=== PATIENT | male | born 1950 | race Caucasian/White ===

== ENCOUNTER 2019-08-10 12:56 | Inpatient (IN) | payer MEDICARE ==
--- OUTSIDE RECORDS SUMMARY | 2019-08-10 13:06 | XMS REPORT | Summary of Care ---
:1950 Author Organization [facility] Address [address] [place] [address] Care Team Providers Name Role Phone Tania Larkin MD Primary Care Provider Reason for Visit Reason Comments Check Up Low abd pain that started yesterday. 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 CapIndications: Benign prostatic hyperplasia with lower urinary tract symptoms, symptom details unspecified pantoprazole (PROTONIX) Take 1 Tab by 90 Tab 3 12/25/2018 Active 40 MG Oral Tab EC mouth DAILY. sertraline (ZOLOFT) 100 Take 1 Tab by 90 Tab 3 12/25/2018 Active MG Oral Tab mouth DAILY. busPIRone (BUSPAR) 5 MG Take 1 Tab by 30 Tab 0 06/06/2019 Active Oral Tab mouth THREE TIMES DAILY. apixaban (ELIQUIS) 5 MG Take 1 Tab by 60 Tab 2 07/24/2019 Active Oral TabIndications: mouth TWICE Saphenous vein clot, DAILY. left Bacillus Take by mouth. 0 Active Coagulans-Inulin (ALIGN PREBIOTIC-PROBIOTIC PO) documented as of this encounter (statuses as of 08/09/2019) Active Problems Problem Noted Date MAYNOR on CPAP 10/16/2018 Iron deficiency anemia 11/18/2014 Overview: Etiology? Probable gi origin but no sure evidence of bleeding seen on upper and lower endoscopy y Gastric polyp 09/23/2014 Tubular adenoma 09/23/2014 Overview: Colon 09/09- Repeat in interval BMI 32.0-32.9,adult 04/18/2013 Overview: This patient's BMI has been calculated and is above average, and BMI management plan is completed. General patient education discussion including: obesity-related excess mortality IBS (irritable bowel syndrome) 10/29/2008 Diverticulosis 10/29/2008 BPH (benign prostatic hypertrophy) 10/29/2008 Overview: Followed by Dr. Jaffe. Anxiety 10/29/2008 Depression 10/29/2008 Reflux 10/29/2008 History of Kidney Stones 10/29/2008 Overview: Dr Joy follows - documented as of this encounter (statuses as of 08/09/2019) Immunizations Name Administration Dates Next Due Influenza (IM) Preservative Free 09/16/2013, 11/09/2012, 10/13/2011 Influenza Vaccine 65 Yrs + 08/07/2019 Influenza Vaccine High Dose 09/14/2018, 09/11/2017, 09/07/2016, 08/26/2015, 09/23/2014 PNEUMOCOCCAL POLYSACCHARIDE VACCINE 04/01/2016 Pneumococcal Conjugate(13 Valent) 09/23/2014 TDAP Vaccine 02/03/2009 ZOSTER (ZOSTAVAX) VACCINE 04/18/2013 documented as of this encounter Social History Tobacco Use Types Packs/Day Years Used Date Former Smoker Cigarettes 1 10 Quit: 11/27/1975 Smokeless Tobacco: Never Used Comments: 1974 Alcohol Use Drinks/Week oz/Week Comments No 0 Standard drinks or equivalent 0.0 Sex Assigned at Date Recorded Not on file Job Start Date Occupation Industry Not on file Not on file Not on file Travel History Travel Start Travel End No recent travel history available. documented as of this encounter Last Filed Vital Signs Vital Sign Reading Time Taken Comments Blood Pressure 116/66 08/09/2019 10:36 AM EDT Pulse 70 08/09/2019 10:36 AM EDT Temperature 36.7 08/09/2019 10:36 AM EDT C (98 F) Respiratory Rate - - Oxygen Saturation - - Inhaled Oxygen Concentration - - Weight 101.6 kg (224 lb) 08/09/2019 10:36 AM EDT Height 182.9 cm (6') 08/09/2019 10:36 AM EDT Body Mass Index 30.38 08/09/2019 10:36 AM EDT documented in this encounter Patient Instructions Patient InstructionsKrystina Seymour FNP - 08/09/2019 10:40 AM EDTLight diet, lots of fluids Rest Tylenol as needed Call if symptoms persist or worsen documented in this encounter Progress Notes Krystina Seymour FNP - 08/09/2019 10:40 AM EDT PATIENT: Fidel Garcia : 1950 DATE OF SERVICE: 08/09/2019 CHIEF COMPLAINT: Chief Complaint Patient presents with Check Up Low abd pain that started yesterday. Subjective HISTORY OF PRESENT ILLNESS: Fidel Garcia is a 69-y.o. male. HPI Abdominal discomfort, nausea and poor appetite x 2 days - slightly better today. Using Tylenol with some relief Past Medical History: Diagnosis Date Actinic keratosis of multiple sites of head and neck Anxiety 10/29/2008 BPH (benign prostatic hypertrophy) 10/29/[address] Jaffe. Diverticulosis 10/29/2008 History of Kidney Stones 10/29/2008 IBS (irritable bowel syndrome) 10/29/2008 Reflux 10/29/2008 Family History Problem Relation Age of Onset Parkinson's Mother Cancer Father Stomach Colon Cancer Father Heart Unknown Both paternal and maternal side Current Outpatient Medications Medication Sig apixaban (ELIQUIS) 5 MG Oral Tab Take 1 Tab by mouth TWICE DAILY. Bacillus Coagulans-Inulin (ALIGN PREBIOTIC-PROBIOTIC PO) Take by mouth. busPIRone (BUSPAR) 5 MG Oral Tab Take 1 Tab by mouth THREE TIMES DAILY. pantoprazole (PROTONIX) 40 MG Oral Tab EC Take 1 Tab by mouth DAILY. sertraline (ZOLOFT) 100 MG Oral Tab Take 1 Tab by mouth DAILY. Tamsulosin HCl (FLOMAX) 0.4 MG Oral Cap Take 1 Cap by mouth DAILY. No current facility-administered medications for this visit. Allergies Allergen Reactions Antihistamines, Chlorpheniramine-Type Other Venlafaxine Hydrochloride Social History Socioeconomic History Marital status: Spouse name: Not on file Number of children: Not on file Years of education: Not on file Highest education level: Not on file Occupational History Not on file Social Needs Financial resource strain: Not on file Food insecurity: Worry: Not on file Inability: Not on file Transportation needs: Medical: Not on file Non-medical: Not on file Tobacco Use Smoking status: Former Smoker Packs/day: 1.00 Years: 10.00 Pack years: 10.00 Types: Cigarettes Last attempt to quit: 11/27/1975 Years since quittin.7 Smokeless tobacco: Never Used Tobacco comment: 1974 Substance and Sexual Activity Alcohol use: No Alcohol/week: 0.0 standard drinks Drug use: No Sexual activity: Yes Partners: Female Lifestyle Physical activity: Days per week: Not on file Minutes per session: Not on file Stress: Not on file Relationships Social connections: Talks on phone: Not on file Gets together: Not on file Attends jain service: Not on file Active member of club or organization: Not on file Attends meetings of clubs or organizations: Not on file Relationship status: Not on file Intimate partner violence: Fear of current or ex partner: Not on file Emotionally abused: Not on file Physically abused: Not on file Forced sexual activity: Not on file Other Topics Concern Not on file Social History Narrative Not on file REVIEW OF SYSTEMS: Review of Systems Constitutional: Positive for malaise/fatigue. Negative for chills and fever. Gastrointestinal: Positive for abdominal pain and nausea. Negative for blood in stool, constipation,diarrhea and vomiting. Objective PHYSICAL EXAM: VITALS: BP 116/66 | Pulse 70 | Temp 98 F (36.7 C) | Ht 6' (1.829 m) | Wt 224 lb (101.6 kg) | BMI 30.38 kg/m Body mass index is 30.38 kg/m . Physical Exam Constitutional: He is oriented to person, place, and time. Vital signs are normal. He appears well-developed and well-nourished. HENT: Head: Normocephalic and atraumatic. Eyes: Pupils are equal, round, and reactive to light. EOM are normal. Neck: Normal range of motion. Cardiovascular: Normal rate. Pulmonary/Chest: Effort normal. Abdominal: Soft. Bowel sounds are normal. He exhibits no distension and no mass. There is no hepatosplenomegaly. There is generalized tenderness. There is no rigidity, no rebound and no guarding. No hernia. Lymphadenopathy: He has no cervical adenopathy. Neurological: He is alert and oriented to person, place, and time. Skin: Skin is warm and dry. He is not diaphoretic. No pallor. Vitals reviewed. ASSESSMENT / IMPRESSION: ICD-9-CM ICD-10-CM 1. Viral gastroenteritis 008.8 A08.4 Plan Light diet, lots of fluids Rest Tylenol as needed Call if symptoms persist or worsen Author: OSWALDO Genao 08/09/2019 10:59 documented in this encounter Plan of Treatment Date Type Specialty Care Team Description 09/06/2019 Office Visit Internal Medicine Tania Larkin MD [address] [place] [address] [phone] Health Maintenance Due Date Last Done Comments AAA SCREENING/SURVEILLANCE 2013 ZOSTER IMMUNIZATION SERIES 06/13/2013 04/18/2013 (2 of 3) MEDICARE ANNUAL WELLNESS 04/01/2017 04/01/2016, 04/23/2014 VISIT COLONOSCOPY SCREENING 09/17/2019 09/17/2014, 04/25/2013 DEPRESSION SCREENING 06/06/2020 06/06/2019 FALL RISK ASSESSMENT 08/07/2020 08/07/2019, 08/07/2019 LIPID DISORDER SCREENING 10/22/2023 10/22/2018, 07/07/2017, 07/07/2017, Additional history exists PNEUMOCOCCAL 65+YRS Completed 04/01/2016, 09/23/2014 INFLUENZA VACCINE Completed 08/07/2019, 09/14/2018, 09/11/2017, Additional history exists HPV IMMUNIZATION SERIES Aged Out No longer eligible based on patient's age to complete this topic MENINGOCOCCAL VACCINE IMM Aged Out No longer eligible based on patient's age to complete this topic documented as of this encounter Goals Goal Patient Goal Associated Recent Patient-Stated? Author Type Problems Progress Depression Depression No santy Larkin (PHQ-9) MD Tania total score < 5 Note: This is an individualized treatment (depression) goal for Fidel Garcia: Displayed above is your goal for a depression screening (PHQ-9) score that would indicate good control of your depression. Keep a regular sleep schedule Lifestyle No Tania Larkin MD Note: This is an individualized lifestyle goal for Fidel Ibrahima Jose: Please maintain a regular sleep schedule. This may help with some symptoms of depression. Take all prescribed medications as directed Self-management No Tania Larkin MD Note: This is an individualized self-management goal for Fidelgermaine Garcia: Please take all prescribed medications as directed. 1. Do not skip doses. If you cannot afford your medications, talk with your doctor. 2. Use a pill reminder system such as a pill box if needed. Your pharmacist can help you with this. 3. Contact your Pharmacy 5 days before your medication runs out. If you cannot take your medications for any reasons, talk with your doctor. 4. Please bring all of your medication bottles and inhalers (or a list of all your medications/inhalers) with you to every visit. Potential barriers to meeting all of your care plan goals will continue to be addressed on an ongoing basis. documented as of this encounter Results Not on filedocumented in this encounter Visit Diagnoses Diagnosis Viral gastroenteritis - Primary Intestinal infection due to other organism, not elsewhere classified documented in this encounter Insurance Payer Benefit Plan / Subscriber ID Effective Dates Phone Address Type Group [employer] MEDIC[employer] xxxxxxxxxxxx 2016-Present [employer] ADVANTAGE MEDICARE BLUE PPO ([phone]) Guarantor Name Account Type Relation to Date of Phone Billing Address Patient Fidel Garcia Personal/Famil 1950 [address] (Home) [address] [phone] [place], [place] (Work) [id number] documented as of this encounter"
--- OUTSIDE RECORDS SUMMARY | 2019-08-10 13:06 | XMS REPORT | Summary of Care ---
:1950 Author Organization [facility] Address [address] [place] [address] Care Team Providers Name Role Phone Tania Larkin MD Primary Care Provider Reason for Visit Reason Comments Abdominal Pain pt presents in office with severe abd pain x3 days Encounter Details Date Type Department Care Team Description 08/10/2019 Office Visit [place] [facility] Tania Larkin MD Abdominal pain, Medicine [address] unspecified abdominal [address] [place] [address] location (Primary Dx) [place] [address] [phone] Allergies Active Allergy Reactions Severity Noted Date Comments Antihistamines, Chlorpheniramine-Type Other 10/29/2008 Venlafaxine Hydrochloride 10/29/2008 documented as of this encounter (statuses as of 08/10/2019) Medications Medication Sig Dispensed Refills Start Date [...] as of this encounter (statuses as of 08/10/2019) Active Problems Problem Noted Date MAYNOR on [...] as of this encounter (statuses as of 08/10/2019) Immunizations Name Administration Dates Next Due Influenza [...] Sign Reading Time Taken Comments Blood Pressure 122/72 08/10/2019 11:45 AM EDT Pulse 65 08/10/2019 11:45 AM EDT Temperature 36.2 08/10/2019 11:45 AM EDT C (97.1 F) Respiratory Rate - - Oxygen Saturation 96% 08/10/2019 11:45 AM EDT Inhaled Oxygen Concentration - - Weight 100 kg (220 lb 6.4 oz) 08/10/2019 11:45 AM EDT Height 182.9 cm (6') 08/10/2019 11:45 AM EDT Body Mass Index 29.89 08/10/2019 11:45 AM EDT documented in this encounter Progress Notes Tania Larkin MD - 08/10/2019 11:00 AM EDT NAME:Fidel Garcia 1950: 1950 ENC Date: 08/10/2019 CC: Chief Complaint Patient presents with Abdominal Pain pt presents in office with severe abd pain x3 days Fidel Garcia is a 69-y.o. male Being treated for superficial venous thrombosis - on anticoag x 2-3 weeks now Seen yesterday with 2 days of abdominal pain - thought possibly gastroenteritis Treatment suggested tylenol - Pain at lower abdomen - - comes and goes - worse with movement- No activity that would strain - No association with Bowel movements ( but has watery diarrhea -which is usual) - No appetite - + chills / sweats - Better - tylenol helps Worse ? Not sure - +Night sweats in the last few day - Current Outpatient Medications Medication Sig apixaban (ELIQUIS) [...] No current facility-administered medications for this visit. Patient Active Problem List Diagnosis Date Noted MAYNOR on CPAP 10/16/2018 Iron deficiency anemia 11/18/2014 Etiology? Probable gi origin but no sure evidence of bleeding seen on upper and lower endoscopy y Gastric polyp 09/23/2014 Tubular adenoma 09/23/2014 Colon 09/09- Repeat in interval BMI 32.0-32.9,adult 04/18/2013 This patient's BMI has been calculated and is above average, and BMI management plan is completed. General patient education discussion including: obesity-related excess mortality IBS (irritable bowel syndrome) 10/29/2008 Diverticulosis 10/29/2008 BPH (benign prostatic hypertrophy) 10/29/[address] Jaffe. Anxiety 10/29/2008 Depression 10/29/2008 Reflux 10/29/2008 History of Kidney Stones 10/29/2008 Dr Joy follows - Family History Problem Relation Age of Onset Parkinson's Mother Cancer Father Stomach Colon Cancer Father Heart Unknown Both paternal and maternal side No cardiopulmonary symptoms No upper or lower GI complaints No urinary tract symptoms. No bruising/ bleeding. No neurological complaints . No insomnia.+ . Social History Tobacco Use Smoking status: Former Smoker Packs/day: 1.00 Years: 10.00 Pack years: 10.00 Types: Cigarettes Last attempt to quit: 11/27/1975 Years since quittin.7 Smokeless tobacco: Never Used Tobacco comment: 1974 Substance Use Topics Alcohol use: No Alcohol/week: 0.0 standard drinks Drug use: No OBJECTIVE: Seems in pain BP 122/72 (BP Location: Right arm, Patient Position: Sitting) | Pulse 65 | Temp 97.1 F (36.2 C) (Tympanic) | Ht 6' (1.829 m) | Wt 220 lb 6.4 oz ( 100 kg) | SpO2 96% | BMI 29.89 kg/m . Heent neg Neck no JVD, thyromegaly or bruit Lungs Clear CV rrr No cva tenderness - Abd Crepitance / distended / Too tender to palpation to get exam Ext trace edemat Neuro: intellect intact ; motor including gait unremarkable Patient became diaphoretic and vimitted after exam - A/P ICD-9-CM ICD-10-CM 1. Abdominal pain, unspecified abdominal location 789.00 R10.9 Patient on anticoag - with progressive 3 day pain - Will send to the ER for urgent - evualuation There are no Patient Instructions on file for this visit. AUTHOR: Tania Larkin MD 12:12 08/10/2019 documented in this encounter Plan of Treatment Date Type Specialty Care Team Description 09/06/2019 Office Visit Internal Medicine Tania Larkin MD [address] [place] [address] [phone] Health Maintenance Due Date Last Done Comments [...] is an individualized lifestyle goal for Fidel Garcia: Please maintain a regular sleep schedule. This may help with some symptoms of depression. Take all prescribed medications as directed Self-management No Tania Larkin MD Note: This is an individualized self-management goal for Fidel Garcia: Please take all prescribed medications as [...] filedocumented in this encounter Visit Diagnoses Diagnosis Abdominal pain, unspecified abdominal location - Primary documented in this encounter Insurance Payer Benefit Plan / Subscriber ID Effective Dates Phone Address Type Group [employer] MEDICARE [employer] xxxxxxxxxxxx 2016-Present [employer] ADVANTAGE MEDICARE BLUE PPO ([phone]) (Home) [address] [phone] [place], [place] (Work) [phone] documented as of this encounter"
--- OUTSIDE RECORDS SUMMARY | 2019-08-10 13:06 | XMS REPORT | Summary of Care ---
:1950 Author Organization [facility] Address [address] [place] [address] Care Team Providers Name Role Phone Tania Larkin MD Primary Care Provider Reason for Visit Reason Comments Follow Up f/u DVT right leg. Lion placed on Eliquis 07-24-19. Doing better, decreased pain and swelling. Injection flu Encounter Details Date Type Department Care Team Description 08/07/2019 Office Visit [place] Internal Tania Larkin MD Need for influenza Medicine [address] vaccination (Primary [address] [place] [address] Dx) [place] [address] [phone] Allergies Active Allergy Reactions Severity Noted Date Comments Antihistamines, Chlorpheniramine-Type Other 10/29/2008 Venlafaxine Hydrochloride 10/29/2008 documented as of this encounter (statuses as of 08/07/2019) Medications Medication Sig Dispensed Refills Start Date [...] as of this encounter (statuses as of 08/07/2019) Active Problems Problem Noted Date MAYNOR on [...] as of this encounter (statuses as of 08/07/2019) Immunizations Name Administration Dates Next Due Influenza [...] Sign Reading Time Taken Comments Blood Pressure 130/70 08/07/2019 10:01 AM EDT Pulse 62 08/07/2019 10:01 AM EDT Temperature - - Respiratory Rate - - Oxygen Saturation 95% 08/07/2019 10:01 AM EDT Inhaled Oxygen Concentration - - Weight 103 kg (227 lb) 08/07/2019 10:01 AM EDT Height 182.9 cm (6') 08/07/2019 10:01 AM EDT Body Mass Index 30.79 08/07/2019 10:01 AM EDT documented in this encounter Patient Instructions Patient InstructionsTania Larkin MD - 08/07/2019 10:00 AM EDTPlan Tania Larkin MD plan - Continue anticoag for 30-60 days - Then stop and observe - If another instance of clotting then commit to long goods drier anticoag Other authorities - Could consult restaurant bartender - Dr Shin - Here in [place]- documented in this encounter Progress Notes Tania Larkin MD - 08/07/2019 10:00 AM EDT NAME:Fidel Garcia [birth year] ENC Date: 08/07/2019 CC: Chief Complaint Patient presents with Follow Up f/u DVT right leg. Lion placed on Eliquis 07-24-19. Doing better, decreased pain and swelling. Injection flu Fidel Garcia is a 69-y.o. male SVT of the right leg - In the saphenous vein up to mid thighi- Etiology of thrombosis - Was [place] [facility] [place]- Does have prostate cancer but limited to the gland and should not be a clot risk - also not on treatment for prostate cancer which could add to clot burden Recommended to stop anticoag by Dr Solorzano but given how clse to the deep system - Current Outpatient Medications Medication Sig apixaban [...] 0.0 standard drinks Drug use: No OBJECTIVE: BP 130/70 | Pulse 62 | Ht 6' (1.829 m) | Wt 227 lb (103 kg) | SpO2 95% | BMI 30.79 kg/m . Right leg is soft to palpation - A/P ICD-9-CM ICD-10-CM 1. Need for influenza vaccination V04.81 Z23 DE FLU VACCINE 65 YRS + Patient Instructions Plan Tania Larkin MD plan - Continue anticoag for 30-60 days - Then stop and observe - If another instance of clotting then commit to long goods drier anticoag Other authorities - Could consult restaurant bartender - Dr Shin - Here in [place]- AUTHOR: Tania Larkin MD 10:58 08/07/2019 documented in this encounter Plan of Treatment Health Maintenance Due Date Last Done Comments AAA SCREENING/SURVEILLANCE 2013 ZOSTER IMMUNIZATION SERIES 06/13/2013 04/18/2013 (2 of 3) MEDICARE ANNUAL WELLNESS 04/01/2017 04/01/2016, 04/23/2014 VISIT INFLUENZA VACCINE (#1) 2019 09/14/2018, 09/11/2017, 09/07/2016, Additional history exists COLONOSCOPY SCREENING 09/17/2019 09/17/2014, 04/25/2013 DEPRESSION SCREENING 06/06/2020 06/06/2019 FALL RISK ASSESSMENT 08/07/2020 08/07/2019, 08/07/2019 LIPID DISORDER SCREENING 10/22/2023 10/22/2018, 07/07/2017, 07/07/2017, Additional history exists PNEUMOCOCCAL 65+YRS Completed 04/01/2016, 09/23/2014 HPV IMMUNIZATION SERIES Aged Out No longer eligible based on patient's age to complete this topic MENINGOCOCCAL VACCINE IMM Aged Out No longer eligible based on patient's age to complete this topic documented as of this encounter Goals Goal Patient Goal Associated Recent Patient-Stated? Author Type Problems Progress Depression Depression No Trae screen (PHQ-9) MD Tania total score < 5 [...] Take all prescribed medications as directed Self-management Tania Nur MD Note: This is an individualized self-management [...] filedocumented in this encounter Visit Diagnoses Diagnosis Need for influenza vaccination - Primary Need for prophylactic vaccination and inoculation against influenza documented in this encounter Insurance Payer Benefit Plan / Subscriber ID Effective Dates Phone Address Type Group [employer] MEDICARE EX[employer]LLUS xxxxxxxxxxxx 2016-Present [employer] ADVANTAGE MEDICARE BLUE PPO ([phone]) Guarantor Name Account Type Relation to Date of Phone Billing Address Patient JoseDevonteFidel P Personal/Famil 1950 [address] ([address]) [address] [phone] [place], [place] (Work) [phone] documented as of this encounter"
--- OUTSIDE RECORDS SUMMARY | 2019-08-10 13:06 | XMS REPORT | Summary of Care ---
:1950 Author Organization [facility] Address [address] [place] [address] Care Team Providers Name Role Phone Tania Larkin MD Primary Care Provider Reason for Referral Refer to Department Only (Routine) Status Reason Specialty Diagnoses / Referred By Referred To Procedures Contact Contact Authorized Vascular Surgery Diagnoses Pain of right lower leg Krystina Seymour, MARKET RISK SPECIALIST [address] [place] [address] MRI/CAT/PET Scan (Routine) Status Reason Specialty Diagnoses / Procedures Referred By Contact Referred To Contact Closed Diagnoses Pain of right lower leg Krystina Seymour, MARKET RISK SPECIALIST Procedures VL LOWER EXTREMITY DUPLEX VEINS RIGHT [address] [place] [address] Reason for Visit Reason Comments Leg Pain 07/20/19 RLE medial erythema cordlike with pain from knee to mid foot with swelling. Self treating with motrin. [id number] po daily Encounter Details Date Type Department Care Team Description 07/24/2019 Office Visit Joycelyn Mclain Krystina Seymour, Pain of right lower leg (Primary Dx); Practice [facility] RISK SPECIALIST Saphenous vein clot, left [address] [place] [address] [place] [address] [phone] Allergies Active Allergy Reactions Severity Noted Date Comments Antihistamines, Chlorpheniramine-Type Other 10/29/2008 Venlafaxine Hydrochloride 10/29/2008 documented as of this encounter (statuses as of 07/24/2019) Medications Medication Sig Dispensed Refills Start Date [...] mouth TWICE Saphenous vein clot, DAILY. left documented as of this encounter (statuses as of 07/24/2019) Active Problems Problem Noted Date MAYNOR on [...] as of this encounter (statuses as of 07/24/2019) Immunizations Name Administration Dates Next Due Influenza (IM) Preservative Free 09/16/2013, 11/09/2012, 10/13/2011 Influenza Vaccine High Dose 09/14/2018, 09/11/2017, 09/07/2016, 08/26/2015, 09/23/2014 PNEUMOCOCCAL POLYSACCHARIDE VACCINE 04/01/2016 Pneumococcal Conjugate(13 Valent) 09/23/2014 TDAP Vaccine 02/03/2009 ZOSTER (ZOSTAVAX) VACCINE 04/18/2013 documented as of this encounter Social History Tobacco Use Types Packs/Day Years Used Date Former Smoker Cigarettes 1 10 Quit: 11/27/1975 Smokeless Tobacco: Never Used Comments: 1975 Alcohol Use Drinks/Week oz/Week Comments No 0 Standard drinks or equivalent 0.0 Sex Assigned at Date Recorded Not on file Job Start Date Occupation Industry Not on file Not on file Not on file Travel History Travel Start Travel End No recent travel history available. documented as of this encounter Last Filed Vital Signs Vital Sign Reading Time Taken Comments Blood Pressure 140/80 07/24/2019 1:22 PM EDT Pulse 72 07/24/2019 1:22 PM EDT Temperature 37.2 07/24/2019 1:22 PM C (99 EDT F) Respiratory Rate 16 07/24/2019 1:22 PM EDT Oxygen Saturation - - Inhaled Oxygen Concentration - - Weight 100.2 kg (221 lb) 07/24/2019 1:22 PM from record EDT Height 182.9 cm (6') 07/24/2019 1:22 PM from record EDT Body Mass Index 29.97 07/24/2019 1:22 PM EDT documented in this encounter Patient Instructions Patient InstructionsKrystina Seymour FNP - 07/24/2019 1:20 PM EDTStart Eliquis - 2 tabs twice a day for 7 days then 1 tab twice a day Schedule appointment with vascular and follow up with Dr Larkin Call if increased redness, pain or swelling Rest - no climbing 2 :41 PM EDT documented in this encounter Progress Notes Krystina Seymour FNP - 07/24/2019 1:20 PM EDT PATIENT: Fidel Garcia : 1950 DATE OF SERVICE: 07/24/2019 CHIEF COMPLAINT: Chief Complaint Patient presents with Leg Pain 07/20/19 RLE medial erythema cordlike with pain from knee to mid foot with swelling. Self treating with motrin. [id number] po daily Subjective HISTORY OF PRESENT ILLNESS: Fidel Garcia is a 69-y.o. male. HPI Pain right LE x 5 days - had been climbing ladders prior to onset - no known injury. Using [id number] mg in AM with some relief Past Medical History: Diagnosis [...] Take 1 Tab by mouth TWICE DAILY. busPIRone (BUSPAR) 5 MG Oral Tab Take [...] Last attempt to quit: 11/27/1975 Years since quittin.6 Smokeless tobacco: Never Used Tobacco comment: 1974 Substance and Sexual Activity Alcohol use: No Alcohol/week: 0.0 standard drinks Drug use: No Sexual activity: Yes Partners: Female Lifestyle Physical activity: Days per week: Not on file Minutes per session: Not on file Stress: Not on file Relationships Social connections: Talks on phone: Not on file Gets together: Not on file Attends [employer] service: Not on file Active member of [...] REVIEW OF SYSTEMS: Review of Systems Constitutional: Negative for chills, fever and malaise/fatigue. Respiratory: Negative for hemoptysis and shortness of breath. Cardiovascular: Positive for leg swelling. Negative for chest pain and palpitations. Musculoskeletal: Positive for myalgias. Skin: Negative for rash. Objective PHYSICAL EXAM: VITALS: BP 140/80 (BP Location: Left arm, Patient Position: Sitting) | Pulse 72 | Temp 99 F (37.2 C) (Tympanic) | Resp 16 | Ht 6' (1.829 m) Comment: from record | Wt 221 lb (100.2 kg) Comment: from record | BMI 29.97 kg/ m Body mass index is 29.97 kg/m. Physical Exam Constitutional: He is oriented to person, place, and time. Vital signs are normal. He appears well-developed and well-nourished. HENT: Head: Normocephalic. Eyes: Pupils are equal, round, and reactive to light. Neck: Normal range of motion. No JVD present. Cardiovascular: Pulses: Dorsalis pedis pulses are 1+ on the right side. Posterior tibial pulses are 1+ on the right side. Non pitting edema left leg Pulmonary/Chest: Effort normal. Musculoskeletal: Legs: Per US tech - extensive clot formation in greater saphenous vein from thigh to calf Neurological: He is alert and oriented to person, place, and time. Gait normal. Skin: Skin is warm and dry. There is erythema. Vitals reviewed. ASSESSMENT / IMPRESSION: ICD-9-CM ICD-10-CM 1. Pain of right lower leg 729.5 M79.661 VL LOWER EXTREMITY DUPLEX VEINS RIGHT COMPREHENSIVE METABOLIC PANEL PROTHROMBIN TIME CBC WITH DIFFERENTIAL CBC WITH DIFFERENTIAL PROTHROMBIN TIME COMPREHENSIVE METABOLIC PANEL REFER TO VASCULAR SURGERY 2. Saphenous vein clot, left 453.6 I82.812 apixaban (ELIQUIS) 5 MG Oral Tab Plan Discussed with Dr Larkin - prefers aggressive treatment due to increased potential for clot migration to femoral vein Labs drawn Start Eliquis - 2 tabs twice a day for 7 days then 1 tab twice a day Schedule appointment with vascular and follow up with Dr Larkin Call if increased redness, pain or swelling Rest - no climbing 40 minutes spent with patient, greater than 50% of time in [id number] counseling and discussion ofDx , treatment and follow up Author: OSWALDO Genao 07/24/2019 16:07 documented in this encounter Plan of Treatment Date Type Specialty Care Team Description 07/30/2019 Office Visit Vascular Surgery Osiris Verma MD [address] [place] [address] 08/06/2019 Office Visit Internal Medicine Tania Larkin MD [address] [place] [address] [phone] Name Type Priority Associated Diagnoses Date/Time VL LOWER EXTREMITY DUPLEX Imaging Routine Pain of right lower 07/24/2019 2 :20 PM VEINS RIGHT leg EDT COMPREHENSIVE METABOLIC Lab Routine Pain of right lower 07/24/2019 2:34 PM PANEL leg EDT PROTHROMBIN TIME Lab Routine Pain of right lower 07/24/2019 2:34 PM leg EDT CBC WITH DIFFERENTIAL Lab Routine Pain of right lower 07/24/2019 2:34 PM leg EDT Name Type Priority Associated Diagnoses Order Schedule COMPREHENSIVE METABOLIC Lab Routine Pain of right lower leg Expected: 07/24 PANEL (Approximate), Expires: 01/20/2020 PROTHROMBIN TIME Lab Routine Pain of right lower leg Expected: 07/24/2019 (Approximate), Expires: 07/24/2020 CBC WITH DIFFERENTIAL Lab Routine Pain of right lower leg Expected: 2018 (Approximate), Expires: 01/20/2020 Name Type Priority Associated Diagnoses Order Schedule REFER TO VASCULAR Referral Routine Pain of right lower leg Expected: 2018, SURGERY Expires: 07/24/2020 Health Maintenance Due Date Last Done Comments AAA SCREENING/SURVEILLANCE 2013 FALL RISK ASSESSMENT 2013 ZOSTER IMMUNIZATION SERIES 06/13/2013 04/18/2013 (2 of 3) MEDICARE ANNUAL WELLNESS 04/01/2017 04/01/2016, 04/23/2014 VISIT INFLUENZA VACCINE (#1) 2019 09/14/2018, 09/11/2017, 09/07/2016, Additional history exists COLONOSCOPY SCREENING 09/17/2019 09/17/2014, 04/25/2013 DEPRESSION SCREENING 06/06/2020 06/06/2019 LIPID DISORDER SCREENING 10/22/2023 10/22/2018, 07/07/2017, 07/07/2017, [...] filedocumented in this encounter Visit Diagnoses Diagnosis Pain of right lower leg - Primary Pain in limb Saphenous vein clot, left documented in this encounter Insurance Payer Benefit Plan / Subscriber ID Effective Dates Phone Address Type Group [employer] EXCELLUS xxxxxxxxxxxx 2016-Present [facility] ADVANTAGE MEDICARE BLUE PPO ([phone]) Guarantor Name Account Type Relation to Date of Phone Billing Address Patient Fidel Garcia Personal/Famil 1950 [address] [phone] [place], [place] (Work) [address] documented as of this encounter"
--- OUTSIDE RECORDS SUMMARY | 2019-08-10 13:06 | XMS REPORT | Summary of Care ---
:1950 Author Organization [facility] Address [address] [place] [address] Care Team Providers Name Role Phone Tania Larkin MD Primary Care Provider Reason for Referral Durable Medical Equipment (Routine) Status Reason Specialty Diagnoses / Referred By Referred To Procedures Contact Contact Pending Review Diagnoses Embolism and thrombosis of superficial vein of right lower extremity Dipesh Valdivia NP [address] [facility] [place] [address] Reason for Visit Reason Comments Other Pain in right leg Refer to Department Only (Routine) Status Reason Specialty Diagnoses / Referred By Referred To Procedures Contact Contact Closed Vascular Surgery Diagnoses Pain of right lower leg Krystina Seymour FNP [address] [place] [address] Encounter Details Date Type Department Care Team Description 07/30/2019 Office Visit [place] Verma, Chronic superficial venous thrombosis of lower extremity, right (Primary Dx); Surgery MD Osiris Pain of right lower leg; [address] [facility] Embolism and thrombosis of superficial vein [place] [address] [place] [address] Allergies Active Allergy Reactions Severity Noted Date Comments Antihistamines, Chlorpheniramine-Type Other 10/29/2008 Venlafaxine Hydrochloride 10/29/2008 documented as of this encounter (statuses as of 07/30/2019) Medications Medication Sig Dispensed Refills Start Date [...] as of this encounter (statuses as of 07/30/2019) Active Problems Problem Noted Date MAYNOR on [...] as of this encounter (statuses as of 07/30/2019) Immunizations Name Administration Dates Next Due Influenza [...] Sign Reading Time Taken Comments Blood Pressure 138/82 07/30/2019 1:07 PM EDT Pulse 64 07/30/2019 1:07 PM EDT Temperature - - Respiratory Rate - - Oxygen Saturation - - Inhaled Oxygen Concentration - - Weight 102.1 kg (225 lb) 07/30/2019 1:07 PM EDT Height 185.4 cm (6' 1") 07/30/2019 1:07 PM EDT Body Mass Index 29.69 07/30/2019 1:07 PM EDT documented in this encounter Progress Notes Dipesh Valdivia NP - 07/30/2019 1:00 PM EDT PATIENT: Fidel Garcia : 1950 DATE OF SERVICE: 07/30/2019 REFERRING PRACTITIONER: Krystina Seymour PRIMARY CARE PROVIDER: Tania Larkin CHIEF COMPLAINT: Chief Complaint Patient presents with Other Pain in right leg Subjective HISTORY OF PRESENT ILLNESS: Fidel Garcia is a 69-y.o. male who is seen for evaluation of previously diagnosed superficial venous thrombosis in the greater saphenous vein from right mid thigh to the calf into the right foot. Patient reports he has been taking Eliquis 10 mg BID since 07/24/2019. Today reports pain and swelling have improved over the last week. He is taking the Eliquis and wears the compression stockings intermittently. Reports a history of prostate cancer, which is being watched. He denies any discoloration or open wounds or ulcers on legs. He does reports some frequent bilateral lower leg swelling. He denies any trauma to the leg. The patient does not have a personal history of venous thrombosis. There is not a history of venous thrombosis in the patient's family. The patient does not have a personal history of hypercoaguable state. There is not a history of a hypercoaguable state in the patient's family. Prior treatments have included: compression stockings and anticoagulation medication. He denies any chest pain, shortness of breath, or recent fever or chills. PREVIOUS DIAGNOSTICS: 07/24/2019 IMPRESSIONS: Patient has a history of right calf and foot swelling with redness to proximal calf region. There is no previous study available for comparison. A sonogram of the right lower extremity deep and superficial venous system was performed assessing grayscale appearance, color doppler flow, pulsed doppler waveforms and compressibility. Venous duplex and compressions of the right lower extremity shows superficial venous thrombosis in the greater saphenous vein from approximately the mid thigh region extending through the calf and into the distal foot. All other veins are patent and compressible. The left common femoral and saphenal femoral vein junction appears normal with compressions and spectral analysis. A verbal preliminary report was given to the requesting provider upon completion of the exam. Past Medical History: Diagnosis Date Actinic keratosis of multiple sites of head and neck Anxiety 10/29/2008 BPH (benign prostatic hypertrophy) 10/29/[address] Jaffe. Diverticulosis 10/29/2008 History of Kidney Stones 10/29/2008 IBS (irritable bowel syndrome) 10/29/2008 Reflux 10/29/2008 Past Surgical History: Procedure Laterality Date TONSILLECTOMY URETERAL MEATUS DILATION At age 12 Family History Problem Relation Age of Onset [...] file Gets together: Not on file Attends caodaism service: Not on file Active member of [...] Narrative Not on file REVIEW OF SYSTEMS: All remaining review of systems was negative. Objective PHYSICAL EXAMINATION: VITALS: BP 138/82 (BP Location: Right arm, Patient Position: Sitting) | Pulse 64 | Ht 6' 1" (1.854 m) | Wt 225 lb (102.1 kg) | BMI 29.69 kg/m GENERAL: awake, alert, oriented. EXTREMITIES: Bilateral lower extremity edema. Right leg slighter more than left. No erythema, no discoloration, no varicose veins noted. DIAGNOSTIC STUDIES: 07/30/2019 Venous duplex no indication of venous incompetence ASSESSMENT: Superficial venous thrombosis of right lower extremity. ICD-9-CM ICD-10-CM 1. Chronic superficial venous thrombosis of lower extremity, right 453.6 I82.811 2. Pain of right lower leg 729.5 M79.661 REFER TO VASCULAR SURGERY 3. Embolism and thrombosis of superficial vein of right lower extremity 453.6 I82.811 DME COMPRESSION STOCKINGS (AMB) Plan PLAN: Patient seen with Dr. Verma. Recommend stopping Eliquis at this time. Knee high compression stockings prescribed 20-30. Recommend compression stockings daily, may remove at bedtime. Warm, moist compress throughout the day. Encouraged walking for exercise, recommend working up to 30 minutes, 5 times per week. May use Ibuprofen for pain relief. Follow up with Vascular Surgery as needed. Author: Dipesh Valdivia NP 07/30/2019 13:36 Associated attestation - Osiris Verma MD - [facility]30/2019 [facility] Supervising MD Documentation Date of Service: B# [id number] I saw and evaluated the patient. Discussed with resident and agree with the resident's findings andplan as documented in the resident's note. Additional Comments: Has recent history of right leg pain and swelling. Both seems to have improved. Physical exam: No obvious varicose veins. Few tender and red veins noted in right anteromedial calf in greater saphenous vein areas. Venous duplex: No evidence of venous incompetence. No deep vein thrombosis. Plan: Benefits of therapeutic anticoagulation in management of superficial venous thrombosis is minimal assuch can be safely discontinued, however I would leave to the discretion of PCP. Since there are no varicose veins or venous incompetence; No obvious cause or source for svt. If recurrent and migratory; might benefit from hem/onc evaluation for further work up Symptomatic treatment of SVT with compression stockings/warm or cold compresses , limb elevation and NSAID's. Follow up as needed Thank you for allowing us in the participation of care in this gentleman. Osiris Verma MD Supervising Physiciandocumented in this encounter Plan of Treatment Date Type Specialty Care Team Description 08/07/2019 Office Visit Internal Medicine CrepetTania MD [address] [place] [address] [phone] Name Type Priority Associated Diagnoses Order Schedule DME COMPRESSION Referral Routine Embolism and thrombosis Ordered: 09/03/ 2019 STOCKINGS (AMB) of superficial vein of right lower extremity Health Maintenance Due Date Last Done Comments [...] depression. Keep a regular sleep schedule Lifestyle Tania Nur MD Note: This is an individualized lifestyle [...] filedocumented in this encounter Visit Diagnoses Diagnosis Chronic superficial venous thrombosis of lower extremity, right - Primary Pain of right lower leg Pain in limb Embolism and thrombosis of superficial vein of right lower extremity Venous embolism and thrombosis of superficial vessels of lower extremity documented in this encounter Insurance Payer Benefit Plan / Subscriber ID Effective Dates Phone Address Type Group [employer] EXCELLUS xxxxxxxxxxxx 2016-Present [employer] ADVANTAGE MEDICARE BLUE PPO ([phone]) Guarantor Name Account Type Relation to Date of Phone Billing Address Patient Fidel Garcia Personal/Famil 1950 [address] [phone] [place], [place] (Work) [address] documented as of this encounter
--- NOTE | 2019-08-10 13:22 | ED ---
Abdominal Pain/Male - HPI Summary HPI Summary: 69 year old M presenting to [facility] complains of lower abdominal pain x3 days. Patient reports diarrhea and nausea since this morning. The patient rates the pain 2/10 in severity. Symptoms aggravated by nothing. Symptoms alleviated by Tylenol. - History of Current Complaint Chief Complaint: EDAbdPain Stated Complaint: ABD PAIN PER Time Seen by Provider: 08/10/19 13:04 Hx Obtained From: Patient Onset/Duration: Lasting Days - 3, Still Present Severity Currently: Mild Pain Intensity: 2 Pain Scale Used: 0-10 Numeric Aggravating Factor(s): Nothing Alleviating Factor(s): Other: - Tylenol Associated Signs And Symptoms: Positive: Nausea, Diarrhea - Allergies/Home Medications Allergies/Adverse Reactions: Allergies Allergy/AdvReac Type Severity Reaction Status Date / Time hystamines Allergy Unknown Uncoded 08/10/19 13:00 Reaction Details Home Medications: Home Medications Apixaban* [Eliquis*] 5 mg PO BID 08/10/19 [History Confirmed 08/10/19] Bacillus Coagulans/Inulin [Probiotic Formula 1-250 Billion-mg] 1 cap PO DAILY [History Confirmed 08/10/19] Pantoprazole Sodium [Protonix] 40 mg PO DAILY 08/10/19 [History Confirmed ] Sertraline* [Zoloft*] 10 mg PO DAILY 08/10/19 [History Confirmed 08/10/19] Tamsulosin CAP* [Flomax CAP*] 0.4 mg PO DAILY 08/10/19 [History Confirmed ] busPIRone TAB* [Buspar TAB*] 5 mg PO TID 08/10/19 [History Confirmed 08/10/19] PMH/Surg Hx/FS Hx/Imm Hx Cardiovascular History: Reports: Hx Deep Vein Thrombosis GI History: Reports: Hx Gastroesophageal Reflux Disease, Other GI Disorders - diverticulitis Sensory History: Reports: Hx Contacts or Glasses Opthamlomology History: Reports: Hx Contacts or Glasses Psychiatric History: Reports: Hx Anxiety - Cancer History Cancer Type, Location and Year: prostate CA - Surgical History Surgery Procedure, Year, and Place: tonsillectomy Infectious Disease History: No Infectious Disease History: Denies: Traveled Outside the [place] in Last 30 Days - Family History Known Family History: Positive: Other - cancer - Social History Alcohol Use: Rare Substance Use Type: Reports: None Hx Tobacco Use: No Smoking Status (MU): Never Smoked Tobacco Review of Systems Negative: Fever Positive: Abdominal Pain, Diarrhea, Nausea All Other Systems Reviewed And Are Negative: Yes Physical Exam - Summary Physical Exam Summary: Appearance: The patient is well-nourished in no acute distress and in no acute pain. Skin: The skin is warm and dry, and skin color reflects adequate perfusion. HEENT: The head is normocephalic and atraumatic. The pupils are equal and reactive. The conjunctivae are clear and without drainage. Nares are patent and without drainage. Mouth reveals moist mucous membranes, and the throat is without erythema and exudate. The external ears are intact. The ear canals are patent and without drainage. The tympanic membranes are intact. Neck: The neck is supple with full range of motion and non-tender. There are no carotid bruits. There is no neck vein distension. Respiratory: Chest is non-tender. Lungs are clear to auscultation and breath sounds are symmetrical and equal. Cardiovascular: Heart is regular rate and rhythm. There is no murmur or rub auscultated. There is no peripheral edema and pulses are symmetrical and equal. Abdomen: The abdomen is soft. There is tenderness in the RLQ and mild tenderness in the RUQ. There is no rebound. There are normal bowel sounds heard in all four quadrants and there is no organomegaly palpated. Musculoskeletal: There is no back tenderness noted. Extremities are non-tender with full range of motion. There is good capillary refill. There is no peripheral edema or calf tenderness elicited. Neurological: Patient is alert and oriented to person, place and time. The patient has symmetrical motor strength in all four extremities. Cranial nerves are grossly intact. Deep tendon reflexes are symmetrical and equal in all four extremities. Psychiatric: The patient has an appropriate affect and does not exhibit any anxiety or depression. Triage Information Reviewed: Yes Vital Signs On Initial Exam: Initial Vitals Temp Pulse Resp BP Pulse Ox 98.0 F 68 16 140/78 95 08/10/19 12:57 08/10/19 12:57 08/10/19 12:57 08/10/19 12:57 08/10/19 12:57 Vital Signs Reviewed: Yes Diagnostics - Vital Signs Vital Signs Temp Pulse Resp BP Pulse Ox 08/10/19 12:57 98.0 F 68 16 140/78 95 - Laboratory Result Diagrams: 08/10/19 13:30 08/10/19 13:30 Lab Statement: Any lab studies that have been ordered have been reviewed, and results considered in the medical decision making process. - CT Abdomen/Pelvis CT Interpretation Completed By: Radiologist Summary of CT Findings: 1. FINDINGS CONSISTENT WITH ACUTE APPENDICITIS. IN ADDITION THERE IS INFLAMMATION OF THE ADJACENT SIGMOID COLON WHICH APPEARS TO BE SECONDARY TO THE APPENDICEAL INFLAMMATION. 2. MILD PARTIAL SMALL BOWEL OBSTRUCTION VERSUS ILEUS. 3. NONOBSTRUCTING LEFT RENAL CALCULI. 4. HEPATIC STEATOSIS. 5. LARGE HIATAL HERNIA. 6. SMALL LEFT LOWER LOBE PULMONARY NODULE. IF THE PATIENT HAS RISK FACTORS RECOMMEND A FOLLOW-UP CT OF THE CHEST IN ONE YEARS TIME. 7. LARGE BLADDER DIVERTICULUM. ED physician has reviewed this report. - EKG 1549 Cardiac Rate: NL - 66 BPM EKG Rhythm: Sinus Rhythm Summary of EKG Findings: Normal sinus rhythm 66 BPM Re-Evaluation - Re-Evaluation First Eval Re-Evaluation Time: 15:10 Comment: Dr. Colin in room with patient Abdominal Pain Male Course/Dx - Course Course Of Treatment: Mr. Garcia presents complaining of low abdominal pain for 3 days. He's had decreased appetite with some nausea this morning. He was nontoxic in appearance with stable vitals. Labs were obtained as well as a CT scan of his abdomen. He was found to have an acute appendicitis and Dr. Colin was contacted. He is on Eliquis and I spoke with Dr. Larkin who recommended that it was safe to stop the Eliquis. - Diagnoses Provider Diagnoses: Acute appendicitis - Provider Notifications Discussed Care Of Patient With: Kit Colin Time Discussed With Above Provider: 15:04 Instructed by Provider To: Other - Dr. Colin agrees to come to ED to see patient Discharge ED - Sign-Out/Discharge Documenting (check all that apply): Patient Departure - Admit Patient Received Moderate/Deep Sedation with Procedure: No - Discharge Plan Condition: Stable Disposition: ADMITTED TO [facility] - Billing Disposition and Condition Condition: STABLE Disposition: Admitted to [facility] - Attestation Statements Document Initiated by Scribe: Yes Documenting Scribe: Nilda Nolasco Provider For Whom Scribe is Documenting (Include Credential): Joe Fregoso MD Scribe Attestation: I, Nilda Nolasco, scribed for Joe Fregoso MD on 08/10/19 at 1955. Scribe Documentation Reviewed: Yes Provider Attestation: The documentation as recorded by the adriaibe, Nilda Nolasco accurately reflects the service I personally performed and the decisions made by me, Joe Fregoso MD Status of Scribe Document: Viewed
[2019-08-10 13:46] LABS: ABS Eosinophils 0.2 10^3/ul (0-0.6); ABS Lymphocytes 0.7 10^3/ul (1.0-4.8); ABS Monocytes 0.9 10^3/ul (0-0.8); ABS Neutrophils 12.2 10^3/ul (1.5-7.7); Eosinophil % 1.1 %; Hematocrit 44 % (42-52); Hemoglobin 14.4 g/dL (14.0-18.0); Lymphocyte % 5.2 %; Mean Corpuscular HGB Conc 33 g/dL (31-36); Mean Corpuscular Hemoglobin 28 pg (27-31); Mean Corpuscular Volume 84 fL (80-94); Mean Platelet Volume 6.9 fL (7.4-10.4); Nucleated Red Blood Cells % 0.1; Platelet Count 299 10^3/uL (150-450); Red Cell Distribution Width 16 % (10-15)
[2019-08-10 13:57] LABS: ALT 9 U/L (7-52); AST 11 U/L (13-39); Albumin 4.1 g/dL (3.2-5.2); Albumin/Globulin Ratio 1.3 (1-3); Alkaline Phosphatase 99 U/L (34-104); Anion Gap 9 mmol/L (2-11); BUN/Creatinine Ratio 17.8 (8-20); Blood Urea Nitrogen 16 mg/dL (6-24); C Reactive Protein 232.83 mg/L (<8.01); CO2 Carbon Dioxide 23 mmol/L (22-32); Chloride 104 mmol/L (101-111); EGFR African American 100.7 (>60); EGFR Non-African American 83.2 (>60); Globulin 3.2 g/dL (2-4); Glucose 120 mg/dL (70-100); Potassium 3.9 mmol/L (3.5-5.0); Sodium 136 mmol/L (135-145); Total Protein 7.3 g/dL (6.4-8.9)
[2019-08-10] MEDS ORDERED: Piperacillin/Tazobac ADVAN(*) 3.375 GM in NS 0.9% 100 ML* 100 ML IVPB ONE (15:03)
[2019-08-10] MEDS ORDERED: Piperacillin/Tazobac (*) 3.375 GM BAG ONE (15:19)
[2019-08-10] MEDS: Ondansetron INJ* 2 MG/ML VIAL IV PRN (15:47)
[2019-08-10] MEDS: NS 0.9% 1000 ML** 1,000 ML IV SCH (16:50)
--- NOTE | 2019-08-10 16:51 | HP ---
CC: Dr. Tania Larkin; Dr. Jaffe; [facility] HISTORY AND PHYSICAL: DATE OF ADMISSION: 08/10/19 LOCATION: The patient seen in the emergency room. HISTORY OF PRESENT ILLNESS: I was contacted by the emergency room to evaluate Mr. Garcia, a 69-year- old gentleman who presented with 3-day history of diarrhea and lower abdominal pain. Workup in the e mergency room is consistent with acute appendicitis and our service was contacted. The patient describes onset of symptoms 3 days ago, generally getting worse, associated with decrease d appetite, chills, but no fevers. The patient has had 1 episode of nausea and no vomiting. He has had multiple lose bowel movements. The patient denies any previous similar symptoms. PAST MEDICAL HISTORY: Prostate cancer, under the treatment of Dr. Jaffe with watchful waiting as the plan; reflux; anxiety; and recent history of a DVT of the right lower leg, found after having discom fort and redness at that site about a week ago. PAST SURGICAL HISTORY: Tonsillectomy. No abdominal surgeries. MEDICATIONS: Include: 1. BuSpar. 2. Protonix. 3. Eliquis 5 mg b.i.d. 4. Zoloft. 5. Flomax. ALLERGIES: Include HISTAMINES. FAMILY HISTORY: Abdominal cancer, possibly stomach or metastatic to stomach in his father. No histo ry of ulcerative colitis or Crohn's disease. SOCIAL HISTORY: Nonsmoker. Lives with his . He is retired. He exercises regularly. REVIEW OF SYSTEMS: No fevers. Chills are described. No shortness of breath or chest pain. No resp iratory distress. No cardiovascular disease or cerebrovascular disease. No irritable bowel symptoms . No dysuria. Last colonoscopy 4 years ago along with endoscopy that was within normal limits accor ding to the patient, this was done through the [facility] system. No bleeding disorders, however, the p atient was recently diagnosed with a DVT and has not been worked up for a clotting issues. He is curr ently on Eliquis. No endocrine disorders. Anxiety as described. PHYSICAL EXAMINATION GENERAL: Alert and oriented x3, in no apparent distress. VITAL SIGNS: The patient is afebrile. Vital signs are stable. HEAD, EARS, EYES, NOSE AND THROAT: Head is normocephalic and atraumatic. Sclerae anicteric. Mucous membranes are moist. NECK: No lymphadenopathy. LUNGS: Clear to auscultation bilaterally. ABDOMEN: Soft, nondistended. Tender at the right lower quadrant without rebound. No masses or herni as noted. No scars. RECTAL: Exam not performed. EXTREMITIES: With no tenderness at the right calf or the left calf. DIAGNOSTIC STUDIES/LAB DATA: Labs reviewed show an elevated white blood cell count of 14, platelet count is 299. Chemistry panel reviewed shows an elevated CRP of 230, normal lipase. CAT scan of the abdomen and pelvis performed. These images as well as the report reviewed and is con sistent with acute appendicitis without abscess formation. The patient has a large hiatal hernia. R adiologist noted some inflammatory changes at the sigmoid colon. There is no free air. He has got a nonobstructing left renal calculi along with a small left lower lobe pulmonary nodule and a CT scan is recommended within 1 year. IMPRESSION AND PLAN: Acute appendicitis. The patient is hemodynamically stable, who is currently on Eliquis for a new DVT. My recommendation is antibiotics, observation and OR tomorrow after the lizbet ent has had somewhat of a modified course off of the Eliquis. I described this with the patient, pablo hinkle over the risks, benefits and alternatives to the procedure of laparoscopic appendectomy. The [facility] ent agrees with the plan. I would like to get an EKG, duplex of his right lower leg to see if the cl ot persists or is propagated. The patient will remain n.p.o. status. My recommendation to the [facility] doctor upon discharge would be to follow up pulmonary nodule given the patient's history of p rostate cancer. In the meantime, the patient will be admitted. Zosyn is already started, IV fluids, n.p.o. status, and OR tomorrow for laparoscopic appendectomy. [id number]/[facility] #: [id number]
[2019-08-10] MEDS ORDERED: Lorazepam PYXIS KEY PRN (17:30)
[2019-08-10] MEDS ORDERED: LORazepam INJ* 2 MG/ML 1 ML VIAL IV PUSH PRN (17:31)
[2019-08-10 17:33] LABS: Urine Appearance Clear; Urine Bacteria Absent (Absent); Urine Bilirubin Negative (Negative); Urine Blood 2+ (Negative); Urine Color Amber; Urine Glucose Negative (Negative); Urine Ketones Negative (Negative); Urine Nitrite Negative (Negative); Urine Protein 1+(30 mg/dL) (Negative); Urine Red Blood Cell 1+(3-5/hpf) (Absent); Urine Squamous Epithelial Cell Present (Absent); Urine Urobilinogen Negative (Negative); Urine White Blood Cell Absent (Absent)
[2019-08-10] MEDS: Morphine INJ* 2 MG/ML 1 ML SYRINGE (TWO MG - NEW SYRINGE VERSION) IV PRN ×3 (18:25→22:44)
[2019-08-10] MEDS ORDERED: Buffered Lidocaine 1% SYRIN* 1 ML/SYRINGE INTRADERM ONE (19:56)
[2019-08-10] MEDS: Piperacillin/Tazobactam VIAL*) 3.375 GM in NS 0.9% 100 ML* 100 ML IVPB SCH (20:23)
[2019-08-11] MEDS: Morphine INJ* 2 MG/ML 1 ML SYRINGE (TWO MG - NEW SYRINGE VERSION) IV PRN ×7 (00:59→23:55)
[2019-08-11] MEDS: Piperacillin/Tazobactam VIAL*) 3.375 GM in NS 0.9% 100 ML* 100 ML IVPB SCH ×3 (03:20→20:05)
[2019-08-11] MEDS: NS 0.9% 1000 ML** 1,000 ML IV SCH ×2 (03:21→17:45)
[2019-08-11 05:12] LABS: ABS Basophils 0.1 10^3/ul (0-0.2); ABS Eosinophils 0.3 10^3/ul (0-0.6); ABS Lymphocytes 0.8 10^3/ul (1.0-4.8); ABS Monocytes 1.2 10^3/ul (0-0.8); ABS Neutrophils 10.8 10^3/ul (1.5-7.7); Hematocrit 43 % (42-52); Hemoglobin 13.9 g/dL (14.0-18.0); Lymphocyte % 6.3 %; Mean Corpuscular HGB Conc 32 g/dL (31-36); Mean Corpuscular Hemoglobin 28 pg (27-31); Mean Corpuscular Volume 85 fL (80-94); Mean Platelet Volume 6.7 fL (7.4-10.4); Platelet Count 297 10^3/uL (150-450); Red Blood Count 5.04 10^6 /uL (4.18-5.48); Red Cell Distribution Width 16 % (10-15); White Blood Count 13.1 10^3/uL (3.5-10.8)
[2019-08-11 05:36] LABS: BUN/Creatinine Ratio 18.3 (8-20); Calcium 8.2 mg/dL (8.6-10.3); EGFR African American 85.2 (>60); EGFR Non-African American 70.4 (>60); Potassium 4.7 mmol/L (3.5-5.0)
[2019-08-11] MEDS ORDERED: Lactated Ringers 1000 ML Bag* 1,000 ML IV SCH (06:00)
[2019-08-11] MEDS ORDERED: Famotidine IV* 10 MG/ML 2 ML (20 mg) IV ONE (07:00)
[2019-08-11] MEDS ORDERED: Bupivacaine 0.25% EPI 200,000* 30 ML SDV ONE (07:14)
[2019-08-11] MEDS ORDERED: Bupivacaine 0.5% W/EPI SDV* 10 ML VIAL INJ ONE (07:15)
[2019-08-11] MEDS ORDERED: Famotidine IV* 10 MG/ML 2 ML (20 mg) ONE (09:07)
[2019-08-11] MEDS ORDERED: DiMENhydriNATE IV* 50 MG/ML VIAL IV PUSH PRN (09:53)
[2019-08-11] MEDS ORDERED: Naloxone* 0.4 MG/ML 1 ML VIAL IV PRN (09:53)
[2019-08-11] MEDS ORDERED: oxyCODONE/Acetamin 5/325 MG* TAB PO PRN (09:53)
[2019-08-11] MEDS ORDERED: fentaNYL* 50 MCG/ML 2 ML VIAL (100 MCG VIAL) IV PRN (09:53)
[2019-08-11] MEDS ORDERED: HYDROcodone/ACETAMIN 5-325 MG* 1 TAB PO PRN (09:53)
[2019-08-11] MEDS ORDERED: Lidocaine 2% PF * 5 ML VIAL ONE (10:07)
[2019-08-11] MEDS ORDERED: Succinylcholine* 20 MG/ML 10 ML VIAL ONE (10:07)
[2019-08-11] MEDS ORDERED: Propofol* 10 MG/ML 20 ML BTL ONE (10:07)
[2019-08-11] MEDS ORDERED: fentaNYL* 50 MCG/ML 2 ML VIAL (100 MCG VIAL) ONE (10:07)
[2019-08-11] MEDS ORDERED: EPHEDrine (Pressors)* 50 MG/ML VIAL ONE (10:47)
[2019-08-11] MEDS ORDERED: Rocuronium* 10 MG/ML VIAL ONE (11:02)
[2019-08-11] MEDS ORDERED: Phenylephrine 40 MCG/ML SYRINGE ONE (11:05)
[2019-08-11] MEDS ORDERED: Glycopyrrolate IV* 0.2 MG/ML 1 ML VIAL ONE (11:10)
[2019-08-11] MEDS ORDERED: Ondansetron INJ* 2 MG/ML VIAL ONE (11:41)
[2019-08-11] MEDS ORDERED: Sugammadex * 200 MG/2 ML VIAL IV PUSH ONE (11:44)
[2019-08-11] MEDS ORDERED: PROCHLORPERAZINE INJ 5 MG/ML 2 ML VIAL ONE (12:03)
--- NOTE | 2019-08-11 12:30 | OP ---
Operative Report - Blank - Operative Report Date of Operation: 08/11/19 Note: Pre-OP Diagnoses: acute appendicitis Post-op Diagnosis: same Procedure: Laparoscopic appendectomy Surgeon: Dixie Asst: none Anethesia: GETA EBL: 50cc IVF: 1750cc crystalloid Specimen: appendix Drains: #7 JASEN at pelvis
[2019-08-11] MEDS: oxyCODONE/Acetamin 5/325 MG* TAB PO PRN ×2 (18:21→23:51)
--- NOTE | 2019-08-11 23:03 | OP ---
CC: Dr. John Jaffe; Dr. Abiola Noguera; Dr. Tania Larkin * DATE OF OPERATION: 08/11/19 - ROOM #331 DATE OF : 46 SURGEON: Kit Colin MD SECURITY GUARDS DISPATCHER: None. ANESTHESIOLOGIST: Dr. Kimbrough. ANESTHESIA: General anesthesia. PRE-OP DIAGNOSIS: Acute appendicitis. POST-OP DIAGNOSIS: Acute appendicitis. OPERATIVE PROCEDURE: Laparoscopic appendectomy. ESTIMATED BLOOD LOSS: 50 cc. FLUIDS: 1750 cc of crystalloid fluid given. SPECIMEN: Appendix. DRAINS: A #7 JASEN drain left in the pelvis. INDICATIONS: The patient was scheduled for laparoscopic appendectomy. I outlined the details of the procedure going over the risks, benefits, and alternatives to him and his . They signed consent. He understood the possible complications which included, but not limited to bleeding, infection, bowel injury, need for additional surgery or open surgeries. We also discussed the possibility of finding of sigmoid diverticulitis and the possible need for drainage or even sigmoid resection. DESCRIPTION OF PROCEDURE: The patient was marked. He was brought to the operating room and placed on the operating table in supine position. Preoperative antibiotics have been given on the floor. Sequential devices were placed on the left lower extremity. General anesthesia was induced and the patient's abdomen was prepped and draped in standard surgical fashion and a time -out was performed. Folds of the umbilicus were elevated anteriorly and a Veress needle was attempted to be placed through the umbilicus. This proved difficult, and we stopped and made a right upper quadrant incision just medial to the midclavicular line onto the right costal margin. This was deepened down to the anterior fascia, which was elevated and the Veress needle inserted into the abdominal cavity, which was then allowed to insufflate to a pressure of 50 mmHg. The patient tolerated the insufflation well. A 12-mm optical trocar was then inserted and review of the abdomen showed adhered colon and small bowel to the anterior abdominal wall just inferior to the umbilicus and no evidence of injury from the Veress needle at this site; however, it was of concern. Next, the Veress needle was removed and a 5 mm trocar was inserted through the umbilical incision site. We were able to bluntly free the small bowel and colon from the anterior abdominal wall. The sigmoid colon showed diverticula without inflammation on the left lower abdomen, but inflammation of the sigmoid colon along the part that we got dissected from the anterior abdominal wall. This dissection was carried out bluntly until we could see the cecum. The cecum was lifted off and we identified a firm adhered appendix that was bluntly freed from the sigmoid colon. Next, we were able to place a 5 mm trocar in the suprapubic area and to review what we had done. The sigmoid colon was run proximally through an area of diverticular disease without inflammation to the portion that showed some inflammation. It had some exudative tissue, but no evidence of perforation. Attention was then turned back to the appendix, which seemed to be the primary culprit. The tip of the appendix was elevated anteriorly and it appeared the base of the appendix extended into the retroperitoneum. The surrounding investing tissue was taken with both scissors and cautery as needed. There was small area of bleeding that was isolated and clipped, but this did not appear to be the appendiceal artery, but rather small bleeder laterally. A window was made around the base of the appendix, but it did not appear to be the healthiest tissues. It was at this point I felt comfortable that this was acute appendicitis with secondary inflammatory changes at the sigmoid colon. We dissected more proximally on the appendix until we were almost at the base of the cecum. Through health tissue, a 30 mm truogn WAI stapling device was fired. The thickened mesoappendix was then isolated and a 45 mm truong WAI stapling device fired across this. Appendix was then placed in an endoscopic retrieval bag. Review of the staple line showed no bleeding or enteric contents. A gauze was placed at the staple line and we noted some oozing at the initial dissection of the mesoappendix. The appendix and an endoscopic retrieval bag were placed over the liver. The liver contour appeared normal. Gallbladder was normal. There was no free fluid in the abdomen during any of the work and no abscess was entered. Next, the small bowel was run retrograde starting at the terminal ileum, which appeared intact without injury and ran retrograde for approximately 3 feet. The bowel appeared normal. We did not see any injuries and this was the small bowel that had been adherent to the anterior abdominal wall when we made our first attempt at gaining pneumo and hemoperitoneum. Again, the sigmoid was evaluated. There was no evidence of injury and only exudative tissue, which was removed and no openings or holes noted. Next, the gauze was removed and Surgicel was placed at the staple line. We then removed the appendix from the right upper quadrant incision site and on the back table opened this up. No abscess was noted. It was thickened indurated tissue. It was passed off as specimen. Review of the abdomen again, we identified omentum, pulled this down towards the right lower quadrant. It was adhered to the anterior abdominal wall superiorly and to the falciform. This was taken down with sharp dissection as well as electrocautery. It did not move much, but we were able to get it over the area of our dissected region at the cecum. Next, a #7 JASEN drain was placed in the abdomen and brought out through the suprapubic port site. It was placed into the pelvis extending up towards the right gutter. It was sutured to the skin with 3-0 Prolene sutures. The abdomen was allowed to collapse. Trocars were removed under direct vision and all skin incisions were reapproximated with 4-0 Monocryl subcuticular sutures followed by sterile dressing. [id number]/[facility] #: [id number] [place]
[2019-08-12] MEDS: Morphine INJ* 2 MG/ML 1 ML SYRINGE (TWO MG - NEW SYRINGE VERSION) IV PRN ×5 (02:47→19:58)
[2019-08-12] MEDS: NS 0.9% 1000 ML** 1,000 ML IV SCH ×2 (03:50→15:23)
[2019-08-12] MEDS: oxyCODONE/Acetamin 5/325 MG* TAB PO PRN ×5 (03:53→22:36)
[2019-08-12] MEDS: Piperacillin/Tazobactam VIAL*) 3.375 GM in NS 0.9% 100 ML* 100 ML IVPB SCH ×3 (03:54→19:58)
--- NOTE | 2019-08-12 08:51 | PN ---
Progress Note - Progress Note Date of Service: 08/12/19 SOAP: Subjective: Pt seen and examined. Pt feeling well. No flatus Objective: Temp Pulse Resp BP Pulse Ox 97.5 F 62 20 120/65 96 08/12/19 07:18 08/12/19 07:18 08/12/19 08:22 08/12/19 07:18 08/12/19 07:18 a and o x3, nad lungs cta abdo: soft/ distended/ tender dressing intact hypoactive BS ext: wnl Assessment: POD 1 lap appy Plan: OOB full liquids only abx possible d/c home tomorrow anticoag as per PMD( I discussed with Dr Larkin)
[2019-08-12] MEDS: Pantoprazole TAB * 40 MG TAB PO SCH (16:13)
[2019-08-13] MEDS: NS 0.9% 1000 ML** 1,000 ML IV SCH ×2 (02:20→12:07)
[2019-08-13] MEDS: Piperacillin/Tazobactam VIAL*) 3.375 GM in NS 0.9% 100 ML* 100 ML IVPB SCH ×2 (04:18→12:07)
[2019-08-13] MEDS: Ondansetron INJ* 2 MG/ML VIAL IV PRN (06:05)
[2019-08-13 06:06] LABS: ABS Eosinophils 0.4 10^3/ul (0-0.6); ABS Monocytes 1.1 10^3/ul (0-0.8); ABS Neutrophils 6.6 10^3/ul (1.5-7.7); Eosinophil % 4.4 %; Hematocrit 38 % (42-52); Hemoglobin 12.4 g/dL (14.0-18.0); Lymphocyte % 10.6 %; Mean Corpuscular HGB Conc 33 g/dL (31-36); Mean Corpuscular Hemoglobin 28 pg (27-31); Mean Corpuscular Volume 85 fL (80-94); Mean Platelet Volume 6.9 fL (7.4-10.4); Platelet Count 297 10^3/uL (150-450); Red Blood Count 4.49 10^6 /uL (4.18-5.48); Red Cell Distribution Width 16 % (10-15); White Blood Count 9.1 10^3/uL (3.5-10.8)
[2019-08-13] MEDS: Pantoprazole TAB * 40 MG TAB PO SCH (08:06)
[2019-08-13] MEDS: oxyCODONE/Acetamin 5/325 MG* TAB PO PRN ×2 (08:11→12:07)
[2019-08-13 11:09] VITALS: BP 121/61
--- NOTE | 2019-08-13 23:12 | PN ---
Progress Note - Progress Note Date of Service: 08/13/19 Note: Surgery Progress: (late entry; patient seen ~ 12:30 pm) S: doing well; less pain. Addison diet; no N/V this a.m., though did vomit last pm. Passing flatus; no BM. O:afeb; VSS Gen: WN, NAD Heart: reg Lungs: clear; sl decreased BS at R base Abd: distended, tympanitic; normoactive BS; lap sites ok; JASEN small to mod amt serosang drainage. Soft; no sig tenderness. JASEN drain removed; SDS placed. Extr: no sig edema; no tenderness or palp cord RLE A: s/p lap appy, improving P: discussed w/ Dr. Colin. JASEN d/c'd. Home today on po Augmentin x 5 d. Office f/ u 1 wk. Instructions reviewed. RLE venous duplex from 08/10 was negative for DVT or superficial thrombosis; at this point patient will likely remain off Eliquis.
--- NOTE | 2019-08-13 23:44 | DS ---
CC: Eleonora Rader Almond * DISCHARGE SUMMARY: DATE OF ADMISSION: 08/11/19 DATE OF DISCHARGE: 08/13/19 ATTENDING SURGEON: Dr. Kit Colin.* (DICTATED BY KEYUR ROBBINS) HOSPITAL COURSE: Please refer to admission history and physical and operative note for details. The patient presented on 08/10/19 with abdominal pain. Non- contrast CT scan at that time revealed changes consistent with acute appendicitis. In addition, he was noted to have large hiatal hernia and nonobstructing left renal stones. He was taken to the operating room by Dr. Colin on 08/11/19 and underwent laparoscopic appendectomy. He was continued on IV Zosyn postoperatively. He did have some vomiting last night, but feels better this morning and is tolerating liquids well. He is passing flatus. He has not yet had a bowel movement. His pain is well controlled. See progress note also from today's date. IMPRESSION: Status post laparoscopic appendectomy for acute suppurative appendicitis. The patient had also undergone venous duplex on admission because of recent superficial thrombophlebitis. He was actively taking Eliquis on admission. The ultrasound was negative for DVT or superficial thrombosis. He will be discharged off Eliquis, but will discuss it with his PCP. The patient will be discharged on 5 additional days of Augmentin 875 mg b.i.d. He will contact our office for followup appointment in approximately 1 week. He is discharged to home in good condition. KEYUR ROBBINS [id number]/[facility] #: [id number] [facility] INSANEL[facility]lie
== END 2019-08-13 15:10 | disposition home or self-care (01) | DRG 343 ==
LOC: ED 12:56 → SSU 15:26
PROVIDERS: ADMIT Surgery; ATTEND Surgery
PROC: 0DTJ4ZZ Resection of Appendix, Percutaneous Endoscopic Approach (ICD-10-PCS; principal; 2019-08-11 09:00)
DX: K35.80 Unspecified acute appendicitis (principal); K44.9 Diaphragmatic hernia without obstruction or gangrene; K57.30 Diverticulosis of large intestine without perforation or abscess without bleeding; N20.0 Calculus of kidney; R11.10 Vomiting, unspecified; C61 Malignant neoplasm of prostate; K21.9 Gastro-esophageal reflux disease without esophagitis; F41.9 Anxiety disorder, unspecified; Z86.718 Personal history of other venous thrombosis and embolism; Z88.8 Allergy status to other drugs, medicaments and biological substances; Z80.0 Family history of malignant neoplasm of digestive organs
CPT/HCPCS: 36415; 74176; 80048; 80053; 81003; 81015; 83605; 83690; 85025; 86140; 88304; 93005; 99284; A9270-GY; C1776; J0330; J0780; J2060; J2270; J2405; J2543; J2704; J3010